=== PATIENT | male | born 1950 | race Caucasian/White ===

== ENCOUNTER 2023-04-09 13:29 | Emergency (ER) | payer OTHER, SELFPAY ==
[2023-04-09 13:34] VITALS: BP 168/92
[2023-04-09 13:49] LABS: % Basophils 0.2 % (0-2); % Eosinophils 2.3 % (0-6); % Immature Granulocytes 0.3 % (0-0.5); % Monocytes 6.3 % (1.7-9.3); % Neutrophils 76.9 % (42.2-75.2); Absolute Eosinophils 0.2 10^3/uL (0-0.7); Absolute Lymphocytes 1.5 10^3/uL (1.2-3.4); Absolute Monocytes 0.7 10^3/uL (0.1-0.6); Absolute Neutrophils 8.1 10^3/uL (1.4-6.5); Hematocrit 43.4 % (39.0-52.0); Hemoglobin 14.8 g/dL (13.0-18.0); Mean Corp Hgb Conc. 34.1 g/dL (33.0-37.0); Mean Corpuscular Hgb 31.3 pg (27.0-31.0); Mean Corpuscular Volume 91.8 fL (80.0-94.0); Mean Platelet Volume 10.6 fL (7.4-10.4); Nucleated Red Blood Cells % 0 % (-); Platelet Count 144 10^3/uL (130-400); Red Blood Cell Count 4.73 10^6/uL (4.70-6.10); Red Cell Dist. Width 13.2 % (11.5-14.5); White Blood Cell Count 10.5 10^3/uL (4.8-10.8)
[2023-04-09 14:34] LABS: ALT (SGPT) 25 U/L (0-50); AST (SGOT) 27 U/L (17-59); Albumin 4.5 g/dl (3.5-5.0); Alkaline Phosphatase 62 U/L (38-126); Blood Urea Nitrogen 17 mg/dl (9-20); Calcium 9.1 mg/dl (8.4-10.2); Carbon Dioxide 24 mmol/L (22-30); Chloride 106 mmol/L (98-107); Glucose 108 mg/dl (70-99); Lipase 42 U/L (23-300); Potassium 4.6 mmol/L (3.5-5.1); Sodium 137 mmol/L (135-145); Total Bilirubin 1.4 mg/dl (0.2-1.3); Total Protein 7.1 g/dl (6.3-8.2); eGFR > 60.00
[2023-04-09] MEDS: NSS 500 IV (14:50)
--- NOTE | 2023-04-09 15:01 | ED.GENMED ---
History of Present Illness
General
Chief Complaint: Abdominal Pain
Time Seen by Provider: 04/09/23 13:58
Travel History
Have you had any contact with someone who has COVID-19?: No
Do you have any symptoms of coronavirus? Fever > 100 degrees, chills, cough, shortness of breath, sore throat, loss of taste or smell, muscle aches, or headache?: No
Course
Orders/Labs/Results
Orders:
Orders
04/09/23 13:43
Complete Blood Count/With Diff Urgent
Comprehensive Metabolic Panel Urgent
Lipase Urgent
04/09/23 14:35
Urinalysis Reflex To Culture Urgent
0.9% Sodium Chloride 500 ml [Nss] 500 ml IV BOLUS
04/09/23 14:36
CT Abd/Pel (IV only)-DH only Urgent
Comment:
Reason For Exam: LLQ abdominal pain
Abnormal Lab Results
04/09/23
13:43
MCH 31.3 H pg
(27.0-31.0)
MPV 10.6 H fL
(7.4-10.4)
Absolute Neuts (auto) 8.1 H 10^3/uL
(1.4-6.5)
Absolute Monos (auto) 0.7 H 10^3/uL
(0.1-0.6)
Neutrophils % 76.9 H %
(42.2-75.2)
Lymphocytes % 14.0 L %
(20.5-51.1)
Glucose 108 H mg/dl
(70-99)
Total Bilirubin 1.4 H mg/dl
(0.2-1.3)
04/09/23 13:43
04/09/23 13:43
Vital Signs
Initial and Last Documented VS:
Initial Vital Signs
Temp Pulse BP Pulse Ox
98.3 F 75 168/92 96
04/09/23 13:34 04/09/23 13:34 04/09/23 13:34 04/09/23 13:34
Last Documented Vital Signs
Temp Pulse BP Pulse Ox
98.3 F 75 168/92 96
04/09/23 13:34 04/09/23 13:34 04/09/23 13:34 04/09/23 13:34
ED Attending Note
-
Portions of this chart may have been created with voice recognition software.� Occasional wrong word or��sound alike� substitutions may have occurred due to the inherent limitations of voice recognition software.
Discharge Plan
Departure
Referrals:
NONE,* [Family Provider] -
Interventions
Interventions:
*Risk Screen - Suicide Last Done: 04/09/23 13:35
*General Assessment Last Done: 04/09/23 13:35
*Neglect/Abuse Screening Last Done: 04/09/23 13:35
ED- Fall Risk Assessment Last Done: 04/09/23 14:13
*ED COVID-19 Vaccine History Last Done: 04/09/23 13:37
MC-Ykwhru-Euhffnmhnc Assessment Last Done: 04/09/23 14:13
[2023-04-09 15:12] LABS: Urine Albumin Negative (Neg - Trace); Urine Bilirubin Negative (Negative); Urine Character Clear (Clear); Urine Color Yellow; Urine Glucose Negative (Negative); Urine Ketone 1+ (Negative); Urine Leukocyte Negative (Negative); Urine Nitrite Negative (Negative); Urine Occult Blood 1+ (Negative); Urine Urobilinogen Negative (Neg - 1+)
--- NOTE | 2023-04-09 15:24 | ED.GENMED ---
History of Present Illness
<Salome Wells PA-C - Last Filed: 04/14/23 23:03>
General
Chief Complaint: Abdominal Pain
Source: patient
Exam Limitations: none
Time Seen by Provider: 04/09/23 13:58
Nursing documentation reviewed up to this point in time: agreed with
Travel History
Have you had any contact with someone who has COVID-19?: No
Do you have any symptoms of coronavirus? Fever > 100 degrees, chills, cough, shortness of breath, sore throat, loss of taste or smell, muscle aches, or headache?: No
History of Present Illness
History of Present Illness:
The patient is a 72 year old male presenting with left lower quadrant abdominal pain. Symptoms started a few days ago and have been worsening. Patient describes the pain as a 'walnut-sized' pain in his lower abdomen with some radiation to the back.
He also reports most recent bowel movement 2 days ago which is not typical per patient. Patient denies any fever, chills, nausea, urinary symptoms, or testicular symptoms.
Patient reports a hernia repair surgery many years ago- denies any other abdominal surgeries
Phy Exam
<Salome Wells PA-C - Last Filed: 04/14/23 23:03>
Physical Exam
Physical Exam:
General: Well appearing and non-toxic
Vitals: Hypertensive, otherwise VSS; afebbrile
HEENT: Atraumatic, normocephalic; pupils equal round and reactive to light; protecting airway
Neck: appears supple, no JVD
CV: RRR, heart sounds normal; No evidence of cyanosis
Resp: Lungs clear; No accessory muscle use
Abd: Soft, mild tenderness in LLQ without rebound or guarding; no masses palpated; Non-distended; no CVA tenderness
Extremities: No deformities, no evidence of cyanosis or edema
Neuro: alert and oriented x 3; grossly intact
Psych: Normal affect
Skin: Intact, no rashes
Course
<Salome Wells PA-C - Last Filed: 04/14/23 23:03>
Orders/Labs/Results
Orders:
Orders
04/09/23 13:43
Complete Blood Count/With Diff Urgent
Comprehensive Metabolic Panel Urgent
Lipase Urgent
04/09/23 14:35
0.9% Sodium Chloride 500 ml [Nss] 500 ml IV BOLUS
04/09/23 14:36
CT Abd/Pel (IV only)-DH only Urgent
Comment:
Reason For Exam: LLQ abdominal pain
04/09/23 15:03
Urinalysis Reflex To Culture Urgent
Date Specimen was Collected: 04/09/23
Time Specimen was Collected: 15:02
Urine Microscopic Reflex Cult Urgent
04/09/23 15:33
Ketorolac [Toradol] 15 mg IV NOW STA
04/09/23 17:56
Amoxicillin 875 mg/Clav 125 mg [Augmentin 875 mg/125 mg] 1 tablet PO NOW STA
Abnormal Lab Results
04/09/23 04/09/23
13:43 15:03
MCH 31.3 H pg
(27.0-31.0)
MPV 10.6 H fL
(7.4-10.4)
Absolute Neuts (auto) 8.1 H 10^3/uL
(1.4-6.5)
Absolute Monos (auto) 0.7 H 10^3/uL
(0.1-0.6)
Neutrophils % 76.9 H %
(42.2-75.2)
Lymphocytes % 14.0 L %
(20.5-51.1)
Glucose 108 H mg/dl
(70-99)
Total Bilirubin 1.4 H mg/dl
(0.2-1.3)
Urine Ketones 1+ A
(Negative)
Ur Occult Blood Reflex 1+ A
(Negative)
Urine Bacteria (Reflex) Few A
(Negative)
04/09/23 13:43
04/09/23 13:43
Vital Signs
Initial and Last Documented VS:
Initial Vital Signs
Temp Pulse BP Pulse Ox
98.3 F 75 168/92 96
04/09/23 13:34 04/09/23 13:34 04/09/23 13:34 04/09/23 13:34
Last Documented Vital Signs
Temp Pulse Resp BP Pulse Ox
98 F 68 16 144/68 99
04/09/23 18:18 04/09/23 18:18 04/09/23 18:18 04/09/23 18:18 04/09/23 18:18
<Josue Keene, - Last Filed: 04/09/23 15:25>
Orders/Labs/Results
Orders:
Orders
04/09/23 13:43
Complete Blood Count/With Diff Urgent
Comprehensive Metabolic Panel Urgent
Lipase Urgent
04/09/23 14:35
0.9% Sodium Chloride 500 ml [Nss] 500 ml IV BOLUS
04/09/23 14:36
CT Abd/Pel (IV only)-DH only Urgent
Comment:
Reason For Exam: LLQ abdominal pain
04/09/23 15:03
Urinalysis Reflex To Culture Urgent
Date Specimen was Collected: 04/09/23
Time Specimen was Collected: 15:02
Urine Microscopic Reflex Cult Urgent
04/09/23 15:33
Ketorolac [Toradol] 15 mg IV NOW STA
04/09/23 17:56
Amoxicillin 875 mg/Clav 125 mg [Augmentin 875 mg/125 mg] 1 tablet PO NOW STA
Abnormal Lab Results
04/09/23 04/09/23
13:43 15:03
MCH 31.3 H pg
(27.0-31.0)
MPV 10.6 H fL
(7.4-10.4)
Absolute Neuts (auto) 8.1 H 10^3/uL
(1.4-6.5)
Absolute Monos (auto) 0.7 H 10^3/uL
(0.1-0.6)
Neutrophils % 76.9 H %
(42.2-75.2)
Lymphocytes % 14.0 L %
(20.5-51.1)
Glucose 108 H mg/dl
(70-99)
Total Bilirubin 1.4 H mg/dl
(0.2-1.3)
Urine Ketones 1+ A
(Negative)
Ur Occult Blood Reflex 1+ A
(Negative)
Urine Bacteria (Reflex) Few A
(Negative)
04/09/23 13:43
04/09/23 13:43
Vital Signs
Initial and Last Documented VS:
Initial Vital Signs
Temp Pulse BP Pulse Ox
98.3 F 75 168/92 96
04/09/23 13:34 04/09/23 13:34 04/09/23 13:34 04/09/23 13:34
Last Documented Vital Signs
Temp Pulse Resp BP Pulse Ox
98 F 68 16 144/68 99
04/09/23 18:18 04/09/23 18:18 04/09/23 18:18 04/09/23 18:18 04/09/23 18:18
<Salome Wells PA-C - Last Filed: 04/14/23 23:03>
MDM/Problems Addressed
Differential Diagnosis Includes:
diverticulitis, constipation, bowel obstruction, incarcerated hernia, pyelonephritis, UTI, nephrolithiasis, appendicitis
MDM/Problems Addressed:
Patient is a 72 year old male presenting with 3 days of left lower quadrant abdominal pain, made worse with movement. He does report some recent constipation. No fever, chills, nausea, vomiting, or symptoms. He is hypertensive, otherwise vital
signs are acceptable. Will check basic labs, lipase, UA. Will start IVF and get CT abdomen/pelvis. Patient declines pain medication at this time.
CBC shows white count at upper limit of normal, otherwise no clinically significant abnormalities. CMP without any clinically significant abnormalities.Lipase normal. CT pending.
Update: patient reporting increasing level of discomfort. Given normal kidney function on labs - will give 15mg toradol.
CT shows findings consistent with mild diverticulitis without abscess or perforation. Incidental finding of likely liver hemangioma. Patient made aware to have US outpatient.
Given normal white count, stable vital signs, mild findings on CT-patient fit for outpatient management. Will discharge with Augmentin, return precautions, PCP follow-up. Patient comfortable with this plan. All questions answered.
Chronic conditions affecting care:
N/A
Acute Exacerbation and/or Progression of Chronic Illness:
Acute diverticulitis
<Salome Wells PA-C - Last Filed: 04/14/23 23:03>
*Radiology
Radiology exam reviewed: preliminary read by ED provider and radiology read reviewed
*Pulse Oximetry
Patient hypoxic: no
*Manager Community Interpretation
Rate: Manager Community- N/A
*Critical Care Note
Total Time (30-74mins, 75-104mins- exclusive of procedures): Not Applicable
ED Attending Note
<Salome Wells PA-C - Last Filed: 04/14/23 23:03>
-
Portions of this chart may have been created with voice recognition software.� Occasional wrong word or��sound alike� substitutions may have occurred due to the inherent limitations of voice recognition software.
<Josue Keene DO - Last Filed: 04/09/23 15:25>
ED Attending Note
Patient seen and examined by attending physician: Yes
I performed the substantive portion of visit, reviewed & personally made and approve the management plan that is documented in note by myself or NUBIA.: Yes
I performed a history and physical exam of patient and discussed management with resident, I reviewed resident's note and agree with documented findings and plan of care.: Yes
ED Attending Note:
I evaluated patient at bedside. White count top normal at 10.5, other chemistries unremarkable. He appears fairly comfortable. Left inguinal pain that worsens with movement. He also had some discomfort on the right side. CT imaging pending.
Discharge Plan
Departure
Patient Disposition: Home (Routine Discharge)
Date of Disposition: 04/09/23
Time of Disposition: 18:10
Patient with high blood pressure during this ER visit?: Yes
Condition: Good
Covid-19: Not Applicable
Discharge Problem:
Acute diverticulitis
Instructions: Low Fiber Diet, Diverticulitis (DC), BLOOD PRESSURE
Prescriptions:
New
amoxicillin-pot clavulanate 875-125 mg tablet
1 tab PO BID 10 Days Qty: 20 0RF
Referrals:
NONE,* [Family Provider] -
Activity Restrictions/Additional Instructions:
- Return to the emergency department with any high fevers, severe abdominal pain, intractable vomiting, severe back pain, worsening current symptoms, or any other concerns
-You received your first dose of antibiotic while in the emergency department tonight. The remaining 10-day course has been sent to your pharmacy. You should start this tomorrow morning
-You can take Motrin as needed for discomfort
-A low fiber/bland diet is recommended for the next few days. You can advance as tolerated. You should stay well-hydrated
-You should follow-up with your primary care provider for further evaluation/management in 1 week to ensure symptoms are improving.
Interventions
Interventions:
*Risk Screen - Suicide Last Done: 04/09/23 13:35
*General Assessment Last Done: 04/09/23 13:35
*Neglect/Abuse Screening Last Done: 04/09/23 13:35
ED- Fall Risk Assessment Last Done: 04/09/23 14:13
*ED COVID-19 Vaccine History Last Done: 04/09/23 13:37
*Nursing Disposition Last Done: 04/09/23 18:18
QO-Hvsxzc-Ixfzyuhmyp Assessment Last Done: 04/09/23 14:13
Discharge Date and Time
Discharge Date/Time: 04/09/23 18:26
[2023-04-09 15:31] LABS: Urine Bacteria Few (Negative); Urine Red Blood Cell 0-2 /HPF (0-2); Urine White Cell 0-2 /HPF (0-5)
[2023-04-09] MEDS: TORADOL 15 MG IV (15:59)
[2023-04-09] MEDS: AUGMENTIN 875 MG/125 MG 1 TABLET PO (18:04)
[2023-04-09 18:18] VITALS: BP 144/68
== END 2023-04-09 18:26 | disposition home or self-care (01) ==
LOC: EMR 13:29
PROVIDERS: Emergency Medicine; EMERGENCY PHYSICIAN Emergency Medicine
DX: K57.92 Diverticulitis of intestine, part unspecified, without perforation or abscess without bleeding (principal)
CPT/HCPCS: 99284; 96374; 96361; 74177; 80053; 81003; 81015; 83690; 85025; Q9967